=== PATIENT | female | born 1965 | race Caucasian/White ===

== ENCOUNTER 2019-02-11 17:46 | Emergency (ER) | payer OTHER ==
[~2019-02-11] VITALS: Ht 165.1 cm; Wt 84.9 kg
[2019-02-11 22:25] VITALS: BP 120/72
== END 2019-02-11 22:54 | disposition home or self-care (01) ==
LOC: ED 17:46
DX: J18.9 Pneumonia, unspecified organism (principal); R30.0 Dysuria
CPT/HCPCS: J7613; Q0092; Q0162